=== PATIENT | female | born 1970 | race Hispanic/Latino ===

== ENCOUNTER 2021-12-28 15:51 | Outpatient (CLI) | payer OTHER | END 2021-12-28 15:52 | disposition home or self-care (01) | LOC: CSHLAB 15:51 | PROVIDERS: ATTEND Student in an Organized Health Care Education/Training Program | DX: Z01.818 Encounter for other preprocedural examination (principal); Z20.822 Contact with and (suspected) exposure to COVID-19; N93.9 Abnormal uterine and vaginal bleeding, unspecified; D64.9 Anemia, unspecified | CPT/HCPCS: 80048; 84703; 85027; 86850; 86900; 86901; 87811; 93005; 93010 ==

== ENCOUNTER 2022-01-02 06:02 | Day surgery (SDC) | payer OTHER ==
[2021-12-28 12:30] VITALS: BMI 35.7
[2021-12-28 16:51] LABS: Hemoglobin 13.2 g/dL (12.0-15.5); Mean Corpuscular HGB CONC 31.2 g/dL (32.0-36.0); Mean Corpuscular Hemoglobin 24.1 pg (27.0-33.0); Mean Corpuscular Volume 77.3 fl (81.6-98.3); Mean Platelet Volume 10.6 fl (7.4-10.4); Platelet Count 313 10x3/uL (150-450); RBC Distribution Width 18.2 % (11.5-14.5); Red Blood Cell (RBC) Count 5.47 10x6/uL (3.90-5.03); White Blood Cell (WBC) Count 6.2 10x3/uL (3.5-10.5)
[2021-12-28 17:13] LABS: BHCG - Serum Negative (NEGATIVE); Pregs Control Background? CLEAR/WHITE (CLR/WHITE); Pregs Control Bar Appear? YES (CONTROL BAR)
[2021-12-28 17:20] LABS: Anion Gap 11 mmol/L (10-20); BUN (Urea Nitrogen) 13 mg/dL (9.8-20.1); Calc. Creatinine Clearance 0 mL/min (70-130); Calcium 9.4 mg/dL (7.8-10.44); Carbon Dioxide 23 mmol/L (22-29); Chloride 110 mmol/L (98-107); Estimated GFR 104; Glucose 84 mg/dL (70-105); Potassium 4.1 mmol/L (3.5-5.1); Sodium 140 mmol/L (136-145)
[2022-01-02] MEDS ORDERED: Gabapentin 300 MG CAP ONE (06:22)
[2022-01-02] MEDS ORDERED: Famotidine/PF 20 mg/2ml Vial ONE (06:23)
[2022-01-02] MEDS ORDERED: CeleCOXIB 100 MG CAP ONE (06:23)
[2022-01-02] MEDS ORDERED: Lidocaine 1% MPF 2 ML VIAL ONE (06:23)
[2022-01-02] MEDS ORDERED: EPINEPHrine 1 MG/ML AMP ONE (07:14)
[2022-01-02] MEDS ORDERED: Bupivacaine PF 0.5% 30 ML VIAL ONE (07:14)
[2022-01-02] MEDS ORDERED: PROPOFOL 20 ML ONE (07:19)
[2022-01-02] MEDS ORDERED: Fentanyl 100 MCG/2 ML VIAL ONE (07:19)
[2022-01-02] MEDS ORDERED: Rocuronium Bromide 10 MG/ML (10ML VIAL) ONE (07:20)
[2022-01-02] MEDS ORDERED: Lidocaine 2% PF 5 ML VIAL ONE (07:20)
[2022-01-02] MEDS ORDERED: CEFAZOLIN 2 GM VIAL ONE (07:21)
[2022-01-02] MEDS ORDERED: Ondansetron PF 4 MG/2 ML Vial ONE (07:42)
[2022-01-02] MEDS ORDERED: Ketorolac Tromethamine 30 MG/ML VIAL ONE (07:42)
[2022-01-02] MEDS ORDERED: Dexamethasone 4 mg/ml Vial ONE (07:42)
[2022-01-02] MEDS ORDERED: Glycopyrrolate 0.2 MG/ML 5 ML SYRINGE ONE (09:18)
[2022-01-02] MEDS ORDERED: Meperidine HCl/PF 25 MG/ML VIAL ONE (09:51)
== END 2022-01-02 12:25 | disposition home or self-care (01) ==
LOC: CSHSDC 06:02
PROVIDERS: ATTEND Student in an Organized Health Care Education/Training Program
PROC: 0UT74ZZ Resection of Bilateral Fallopian Tubes, Percutaneous Endoscopic Approach (ICD-10-PCS; principal; 2022-01-02)
PROC: 8E0W4CZ Robotic Assisted Procedure of Trunk Region, Percutaneous Endoscopic Approach (ICD-10-PCS; principal; 2022-01-02)
PROC: 0UT94ZZ Resection of Uterus, Percutaneous Endoscopic Approach (ICD-10-PCS; principal; 2022-01-02)
DX: N80.0 Endometriosis of uterus (principal); N70.11 Chronic salpingitis; K66.0 Peritoneal adhesions (postprocedural) (postinfection); N99.71 Accidental puncture and laceration of a genitourinary system organ or structure during a genitourinary system procedure; D64.9 Anemia, unspecified; I10 Essential (primary) hypertension; Z79.899 Other long term (current) drug therapy; Z20.822 Contact with and (suspected) exposure to COVID-19
CPT/HCPCS: 80048; 84703; 85027; 86850; 86900; 86901; 87811; 88307; J0171; J0690; J1100; J1885; J2001; J2175; J2405; J2704; J3010; S0020; S0028